=== PATIENT | female | born 1980 | race Two or more races ===

== ENCOUNTER 2016-11-03 17:10 | Inpatient (IN) | payer SELFPAY ==
[~2016-11-03] VITALS: Ht 157.5 cm; Wt 69.4 kg
--- NOTE | 2016-11-03 18:14 | PDOC1 ---
OB - History Hx of Present Care: Good Care Ultrasounds: Normal mid trimester US Obstetrical Complications: None Medical Complications: None Other Concerns: [place] Past Family/Social History * Past Medical, Surgical, Family and Obstetric Histories reviewed from chart. Rubella: Immune RPR/VDRL: Negative GBS Status: Negative HBsAG: Negative OB - Chief Complaint & HPI Date of Admission: Date of Admission: Nov 03, 2016 at 17:10 Chief Complaint/History : 7 Para: 6 EGA: 39 Reason for admission: active labor Admission Nurse Assessment Rev: Yes Problems: OB - Admission Exam Physical Exam HEENT: Normal Heart: Regular Rate Lungs: Clear Abdomen: Gravid, Non tender, Soft Extremities: Edema Reflexes: Normal Cervical Dilatation: 5cm Effacement: 100% Station: -2 Membranes: Intact Heart Rate: Normal Accelerations: Accelerations Present Decelerations: No decelerations Contractions on Admission: 6-10 Minutes Apart Intensity: Mild Text A: 38 wks IUP Grand Multip H/o rapid labor P: Admit for labor management. HARESH SWARTZ Jr, MD Nov 03, 2016 18:14
[2016-11-03] MEDS ORDERED: LIDOCAINE 1% PF 30 ML VIAL. INJ PRN (18:15)
[2016-11-03] MEDS ORDERED: FENTANYL PF 100 MCG/2 ML VIAL. IV PRN (18:15)
[2016-11-03] MEDS ORDERED: OXYTOCIN 30 UNIT/500 ML PREMIX 500 ML IV PRN (18:15)
[2016-11-03] MEDS ORDERED: IBUPROFEN 600 MG TABLET. PO PRN (18:15)
[2016-11-03] MEDS: IV RINGERS,LACTATED 1000ML 1,000 ML IV SCH ×2 (18:39→23:49)
[2016-11-03 19:14] LABS: HEMATOCRIT 32.7 % (36.0-47.0); HEMOGLOBIN 10.4 g/dL (12.0-15.5); RED BLOOD COUNT 4.06 x10^6/uL (3.50-5.40); RED CELL DISTRIBUTION WIDTH 28.9 % (11.5-14.5); WHITE BLOOD COUNT 9.4 x10^3/uL (4.0-11.0)
[2016-11-04] MEDS ORDERED: MISOPROSTOL 200 MCG TABLET ONE ×2 (00:24→01:00)
--- NOTE | 2016-11-04 00:46 | PDOC ---
VAGINAL DELIVERY DATE DATE: 11/04/16 TIME: 00:45 : 7 Para: 7 EGA: 38 VAGINAL DELIVERY: VTX VACCUM ASSISTED: No PLACENTA: Spontaneous 8/9 SEX: Female WEIGHT Weight [3525 gm ] Nuchal Cord: No Amniotic Fluid: Clear PAIN: Natural EPISIOTOMY: No EXTENSION: No EBL 300 ml COMPLICATIONS none CONDITION pt. stable Signs of Intrauterine Infectio: None Shoulder Dystocia: No Problems: HARESH SWARTZ Jr, MD Nov 04, 2016 00:46
[2016-11-04] MEDS ORDERED: 0.9 % SODIUM CHLORIDE 10 ML DISP.SYRIN. IV PRN (01:00)
[2016-11-04] MEDS ORDERED: DIPHENHYDRAMINE HCL 25 MG CAPSULE PO PRN (01:00)
[2016-11-04] MEDS ORDERED: MMR per PROTOCOL. MC PRN (01:00)
[2016-11-04] MEDS ORDERED: BENZOCAINE 20% TOPICAL AEROSOL SPRAY 57GM CAN. TP PRN (01:00)
[2016-11-04] MEDS ORDERED: MAGNESIUM HYDROXIDE 2,400 MG/30 ML ORAL.SUSP. PO PRN (01:00)
[2016-11-04] MEDS ORDERED: OXYTOCIN 30 UNIT/500 ML PREMIX 500 ML IV PRN (01:00)
[2016-11-04] MEDS ORDERED: MAG HYDROX/ALUMINUM HYDROX/SMC 30 ML ORAL.SUSP PO PRN (01:00)
[2016-11-04] MEDS ORDERED: PHENYLEPH/MINERAL OIL/PETROLAT RECTAL OINTMENT 28GM TUBE. RC PRN (01:00)
[2016-11-04] MEDS ORDERED: SIMETHICONE 80 MG TAB.CHEW PO PRN (01:00)
[2016-11-04] MEDS ORDERED: ZOLPIDEM 5 MG TABLET. PO PRN (01:00)
[2016-11-04] MEDS ORDERED: HYDROCORTISONE 1% TOPICAL OINTMENT 30GM TUBE. TP PRN (01:00)
[2016-11-04] MEDS ORDERED: ACETAMINOPHEN 325 MG TABLET. PO PRN (01:00)
[2016-11-04 01:17] VITALS: BP 117/68
[2016-11-04] MEDS: IBUPROFEN 800 MG TABLET. PO PRN (01:32)
[2016-11-04 04:23] VITALS: BP 105/59
[2016-11-04 05:59] VITALS: BP 115/78
--- NOTE | 2016-11-04 07:46 | DISCH ---
DISCHARGE INSTRUCTIONS Condition on Discharge Condition on Discharge: Stable Activity After Discharge Activity Instructions for Disc: Activity as tolerated Lifting Instructions after Dis: No heavy lifting Driving Instructions after Dis: Do not drive today Diet after Discharge Diet after Discharge: Regular Contacting the [facility] after DC Call your doctor for: Concerns you may have Follow-Up Follow up with: Shady in 6 weeks. HARESH SWARTZ Jr, MD Nov 04, 2016 07:46
--- NOTE | 2016-11-04 07:46 | PDOC ---
SURGICAL PROGRESS NOTE Subjective Pt. feeling well. Pain controlled. Pt. ambulating, voiding and tolerating regular diet. Vital Signs Vital Signs Date Time Temp Pulse Resp B/P Pulse Ox O2 Delivery O2 Flow Rate FiO2 11/04/16 05:59 97.7 90 115/78 97.7 11/04/16 04:23 18 11/04/16 01:17 Room Air PATIENT HAS A FUNEZ: No General: Alert, Oriented X3, Cooperative HEENT: Atraumatic Lungs: Clear to auscultation Heart: Regular rate Abdomen: Normal bowel sounds, Soft, No tenderness, No masses Extremities: No clubbing Neuro: Normal gait Psych/Mental Status: Mental status NL Labs Laboratory Tests Test 11/03/16 18:57 White Blood Count 9.4x10^3/uL (4.0-11.0) Red Blood Count 4.06x10^6/uL (3.50-5.40) Hemoglobin 10.4g/dL (12.0-15.5) Hematocrit 32.7% (36.0-47.0) Mean Corpuscular Volume 81fL (79-100) Mean Corpuscular Hemoglobin 26pg (25-35) Mean Corpuscular Hemoglobin Concent 32g/dL (31-37) Red Cell Distribution Width 28.9% (11.5-14.5) Platelet Count 198x10^3/uL (140-400) Laboratory Tests Test 11/03/16 18:57 White Blood Count 9.4x10^3/uL (4.0-11.0) Red Blood Count 4.06x10^6/uL (3.50-5.40) Hemoglobin 10.4g/dL (12.0-15.5) Hematocrit 32.7% (36.0-47.0) Mean Corpuscular Volume 81fL (79-100) Mean Corpuscular Hemoglobin 26pg (25-35) Mean Corpuscular Hemoglobin Concent 32g/dL (31-37) Red Cell Distribution Width 28.9% (11.5-14.5) Platelet Count 198x10^3/uL (140-400) Assessment/Plan A: POD#1 s/p LPSC BSO P: D/c home. Problems: HARESH SWARTZ Jr, MD Nov 04, 2016 07:46
[2016-11-04] MEDS ORDERED: LORA-434 PO (07:48)
[2016-11-04] MEDS ORDERED: OXYC-244 PO (07:48)
[2016-11-04] MEDS ORDERED: IBUP-1060 PO (07:48)
[2016-11-04] MEDS: OXYCODONE/APAP 5/325 TABLET. PO PRN ×2 (08:20→22:45)
[2016-11-04] MEDS: DOCUSATE SODIUM 100 MG CAPSULE PO PRN (08:20)
[2016-11-04] MEDS: IV RINGERS,LACTATED 1000ML 1,000 ML IV SCH ×2 (10:04→18:04)
[2016-11-04 11:24] VITALS: BP 110/70
[2016-11-04 18:24] VITALS: BP 117/80
[2016-11-05 04:52] VITALS: BP 110/74
[2016-11-05 04:58] LABS: BASO # 0.1 x10^3/uL (0.0-0.2); BASO % 1 % (0-3); EOS % 8 % (0-3); HEMOGLOBIN 10.3 g/dL (12.0-15.5); LYMPH # 3.6 x10^3/uL (1.0-4.8); LYMPH % 39 % (24-48); MEAN CORPUSCULAR HEMOGLOBIN 26 pg (25-35); MEAN CORPUSCULAR HGB CONC 31 g/dL (31-37); MEAN CORPUSCULAR VOLUME 82 fL (79-100); MONO % 6 % (0-9); NEUT % 46 % (31-73); PLATELET COUNT 209 x10^3/uL (140-400); RED BLOOD COUNT 4.03 x10^6/uL (3.50-5.40); RED CELL DISTRIBUTION WIDTH 29.9 % (11.5-14.5); WHITE BLOOD COUNT 9.3 x10^3/uL (4.0-11.0)
[2016-11-05 06:31] LABS: ANISOCYTOSIS MOD; PLT ESTIMATE ADEQUATE (ADEQUATE)
[2016-11-05] MEDS ORDERED: FERROUS SULFATE 325 MG TABLET PO SCH (08:00)
--- NOTE | 2016-11-05 11:15 | PDOC ---
OB Progress Note Date of Service 11/05/16 Time of Evaluation 1115 Notes Pt. feeling well. Pain controlled. Lochia minimal. Breast feeding without difficulty. Lab Laboratory Tests Test 11/03/16 18:57 11/05/16 03:50 White Blood Count 9.4x10^3/uL (4.0-11.0) 9.3x10^3/uL (4.0-11.0) Red Blood Count 4.06x10^6/uL (3.50-5.40) 4.03x10^6/uL (3.50-5.40) Hemoglobin 10.4g/dL (12.0-15.5) 10.3g/dL (12.0-15.5) Hematocrit 32.7% (36.0-47.0) 33.0% (36.0-47.0) Mean Corpuscular Volume 81fL (79-100) 82fL (79-100) Mean Corpuscular Hemoglobin 26pg (25-35) 26pg (25-35) Mean Corpuscular Hemoglobin Concent 32g/dL (31-37) 31g/dL (31-37) Red Cell Distribution Width 28.9% (11.5-14.5) 29.9% (11.5-14.5) Platelet Count 198x10^3/uL (140-400) 209x10^3/uL (140-400) RPR Titer Additional Testing Non reactive (Non Reactive) Neutrophils (%) (Auto) 46% (31-73) Lymphocytes (%) (Auto) 39% (24-48) Monocytes (%) (Auto) 6% (0-9) Eosinophils (%) (Auto) 8% (0-3) Basophils (%) (Auto) 1% (0-3) Neutrophils # (Auto) 4.3x10^3uL (1.8-7.7) Lymphocytes # (Auto) 3.6x10^3/uL (1.0-4.8) Monocytes # (Auto) 0.5x10^3/uL (0.0-1.1) Eosinophils # (Auto) 0.8x10^3/uL (0.0-0.7) Basophils # (Auto) 0.1x10^3/uL (0.0-0.2) Platelet Estimate Adequate (ADEQUATE) Anisocytosis Mod Laboratory Tests Test 11/05/16 03:50 White Blood Count 9.3x10^3/uL (4.0-11.0) Red Blood Count 4.03x10^6/uL (3.50-5.40) Hemoglobin 10.3g/dL (12.0-15.5) Hematocrit 33.0% (36.0-47.0) Mean Corpuscular Volume 82fL (79-100) Mean Corpuscular Hemoglobin 26pg (25-35) Mean Corpuscular Hemoglobin Concent 31g/dL (31-37) Red Cell Distribution Width 29.9% (11.5-14.5) Platelet Count 209x10^3/uL (140-400) Neutrophils (%) (Auto) 46% (31-73) Lymphocytes (%) (Auto) 39% (24-48) Monocytes (%) (Auto) 6% (0-9) Eosinophils (%) (Auto) 8% (0-3) Basophils (%) (Auto) 1% (0-3) Neutrophils # (Auto) 4.3x10^3uL (1.8-7.7) Lymphocytes # (Auto) 3.6x10^3/uL (1.0-4.8) Monocytes # (Auto) 0.5x10^3/uL (0.0-1.1) Eosinophils # (Auto) 0.8x10^3/uL (0.0-0.7) Basophils # (Auto) 0.1x10^3/uL (0.0-0.2) Platelet Estimate Adequate (ADEQUATE) Anisocytosis Mod Medications Current Medications Lactated Ringer's (Iv Lactated Ringers) 1,000 ml @ 125 mls/hr Q8H IV Last administered on 11/03/16 23:49; Start 11/03/16 at 18:04; Stop 11/04/16 at 20:09 ; Status DC Fentanyl Citrate (Fentanyl 2ml Vial) 100 mcg PRN Q1HR PRN IV Severe pain Last administered on 11/04/16 00:07; Start 11/03/16 at 18:15 Lidocaine HCl 30 ml 30 ml 1X PRN PRN INJ SEE COMMENTS; Start 11/03/16 at 18:15 ; Stop 11/05/16 at 18:14 Oxytocin/Sodium Chloride (Oxytocin Premix Infusion) 500 ml @ 0 mls/hr CONT PRN PRN IV Post delivery bleeding Last administered on 11/03/16 23:49; Start at 18:15 Ibuprofen (Motrin) 600 mg PRN Q6HRS PRN PO PAIN; Start 11/03/16 at 18:15 Misoprostol (Cytotec 200mcg Tab) 200 mcg STK-MED ONCE .ROUTE ; Start 11/04/16 at 00:24; Stop 11/04/16 at 00:25; Status DC Sodium Chloride 10 ml 10 ml QSHIFT PRN IV AFTER MEDS AND BLOOD DRAWS; Start at 01:00 Oxytocin/Sodium Chloride (Oxytocin Premix Infusion) 500 ml @ 62.5 mls/hr CONT PRN IV SEE I/O RECORD; Start 11/04/16 at 01:00; Stop 11/04/16 at 08:59; Status DC Acetaminophen (Tylenol) 650 mg PRN Q6HRS PRN PO MILD PAIN / TEMP; Start at 01:00 Ibuprofen (Motrin) 800 mg PRN Q8HRS PRN PO INFLAMMATION/PAIN PREVENTION Last administered on 11/04/16 01:32; Start 11/04/16 at 01:00 Docusate Sodium (Colace) 100 mg PRN BID PRN PO CONSTIPATION Last administered on 11/04/16 08:20; Start 11/04/16 at 01:00 Magnesium Hydroxide (Milk Of Magnesia) 2,400 mg PRN DAILY PRN PO CONSTIPATION; Start 11/04/16 at 01:00 Al Hydrox/Mg Hydrox/Simethicone (Mylanta Plus Xs) 30 ml PRN Q4HRS PRN PO HEARTBURN / GAS; Start 11/04/16 at 01:00 Simethicone (Gas-X) 80 mg PRN AFTMEALHC PRN PO GAS / BLOATING; Start 11/04/16 at 01:00 Diphenhydramine HCl (Benadryl) 25 mg PRN Q6HRS PRN PO ITCHING; Start 11/04/16 at 01:00 Benzocaine (Americaine) 1 spray PRN QID PRN TP TOPICAL PAIN; Start 11/04/16 at 01:00 Phenyleph/Shark Oil/Min Oil/Petrol (Preparation H) 1 jonnie PRN QID PRN RC RECTAL PAIN; Start 11/04/16 at 01:00 Hydrocortisone (Cortaid) 1 jonnie PRN QID PRN TP PERINEAL PAIN; Start 11/04/16 at 01:00 Ferrous Sulfate (Feosol) 325 mg BIDWMEALS PO ; Start 11/05/16 at 08:00 Zolpidem Tartrate (Ambien) 5 mg PRN QHS PRN PO INSOMNIA, MAY REPEAT X1; Start 11/04/16 at 01:00 Info (Do NOT chart on this placeholder) 1 ea 1X PRN PRN MC SEE COMMENTS; Start 11/04/16 at 01:00 Info (Do NOT chart on this placeholder) 1 ea 1X PRN PRN MC SEE COMMENTS; Start 11/04/16 at 01:00 Oxycodone/ Acetaminophen (Percocet 5/325) 2 tab PRN Q4HRS PRN PO MODERATE PAIN , SEVERE PAIN Last administered on 11/04/16t 22:45; Start 11/04/16 at 01:00 Misoprostol (Cytotec 200mcg Tab) 800 mcg STK-MED ONCE .ROUTE ; Start 11/04/16 at 01:00; Stop 11/04/16 at 08:18; Status DC Active Scripts Active Ibuprofen 800 Mg Tablet 800 Mg PO PRN Q6HRS PRN Exam Abd: soft, non tender, fundus firm Assessment A: PPD#1 s/p Plan of Care: Continue current Tx, Mgmt HARESH SWARTZ Jr, MD Nov 05, 2016 11:15
[2016-11-05] MEDS: IBUPROFEN 800 MG TABLET. PO PRN (16:11)
[2016-11-05] MEDS: DOCUSATE SODIUM 100 MG CAPSULE PO PRN (16:11)
[2016-11-05 21:42] VITALS: BP 114/78
[2016-11-06] MEDS: IBUPROFEN 800 MG TABLET. PO PRN (03:02)
[2016-11-06 06:15] VITALS: BP 102/65
[2016-11-06] MEDS: DOCUSATE SODIUM 100 MG CAPSULE PO PRN (09:18)
[2016-11-06] MEDS: OXYCODONE/APAP 5/325 TABLET. PO PRN (09:22)
[2016-11-06 14:05] VITALS: BP 104/70
--- NOTE | 2016-11-06 15:08 | PDOC ---
OB Progress Note Date of Service 11/06/16 Time of Evaluation 1505 Notes Pt. feeling well. No complaints. Lab Laboratory Tests Test 11/05/16 03:50 White Blood Count 9.3x10^3/uL (4.0-11.0) Red Blood Count 4.03x10^6/uL (3.50-5.40) Hemoglobin 10.3g/dL (12.0-15.5) Hematocrit 33.0% (36.0-47.0) Mean Corpuscular Volume 82fL (79-100) Mean Corpuscular Hemoglobin 26pg (25-35) Mean Corpuscular Hemoglobin Concent 31g/dL (31-37) Red Cell Distribution Width 29.9% (11.5-14.5) Platelet Count 209x10^3/uL (140-400) Neutrophils (%) (Auto) 46% (31-73) Lymphocytes (%) (Auto) 39% (24-48) Monocytes (%) (Auto) 6% (0-9) Eosinophils (%) (Auto) 8% (0-3) Basophils (%) (Auto) 1% (0-3) Neutrophils # (Auto) 4.3x10^3uL (1.8-7.7) Lymphocytes # (Auto) 3.6x10^3/uL (1.0-4.8) Monocytes # (Auto) 0.5x10^3/uL (0.0-1.1) Eosinophils # (Auto) 0.8x10^3/uL (0.0-0.7) Basophils # (Auto) 0.1x10^3/uL (0.0-0.2) Platelet Estimate Adequate (ADEQUATE) Anisocytosis Mod Medications Current Medications Lactated Ringer's (Iv Lactated Ringers) 1,000 ml @ 125 mls/hr Q8H IV Last administered on 11/03/16 23:49; Start 11/03/16 at 18:04; Stop 11/04/16 at 20:09 ; Status DC Fentanyl Citrate (Fentanyl 2ml Vial) 100 mcg PRN Q1HR PRN IV Severe pain Last administered on 11/04/16 00:07; Start 11/03/16 at 18:15 Lidocaine HCl 30 ml 30 ml 1X PRN PRN INJ SEE COMMENTS; Start 11/03/16 at 18:15 ; Stop 11/05/16 at 18:14; Status DC Oxytocin/Sodium Chloride (Oxytocin Premix Infusion) 500 ml @ 0 mls/hr CONT PRN PRN IV Post delivery bleeding Last administered on 11/03/16 23:49; Start at 18:15 Ibuprofen (Motrin) 600 mg PRN Q6HRS PRN PO PAIN; Start 11/03/16 at 18:15 Misoprostol (Cytotec 200mcg Tab) 200 mcg STK-MED ONCE .ROUTE ; Start 11/04/16 at 00:24; Stop 11/04/16 at 00:25; Status DC Sodium Chloride 10 ml 10 ml QSHIFT PRN IV AFTER MEDS AND BLOOD DRAWS; Start at 01:00 Oxytocin/Sodium Chloride (Oxytocin Premix Infusion) 500 ml @ 62.5 mls/hr CONT PRN IV SEE I/O RECORD; Start 11/04/16 at 01:00; Stop 11/04/16 at 08:59; Status DC Acetaminophen (Tylenol) 650 mg PRN Q6HRS PRN PO MILD PAIN / TEMP; Start at 01:00 Ibuprofen (Motrin) 800 mg PRN Q8HRS PRN PO INFLAMMATION/PAIN PREVENTION Last administered on 11/06/16 03:02; Start 11/04/16 at 01:00 Docusate Sodium (Colace) 100 mg PRN BID PRN PO CONSTIPATION Last administered on 11/06/16 09:18; Start 11/04/16 at 01:00 Magnesium Hydroxide (Milk Of Magnesia) 2,400 mg PRN DAILY PRN PO CONSTIPATION; Start 11/04/16 at 01:00 Al Hydrox/Mg Hydrox/Simethicone (Mylanta Plus Xs) 30 ml PRN Q4HRS PRN PO HEARTBURN / GAS; Start 11/04/16 at 01:00 Simethicone (Gas-X) 80 mg PRN AFTMEALHC PRN PO GAS / BLOATING; Start 11/04/16 at 01:00 Diphenhydramine HCl (Benadryl) 25 mg PRN Q6HRS PRN PO ITCHING; Start 11/04/16 at 01:00 Benzocaine (Americaine) 1 spray PRN QID PRN TP TOPICAL PAIN; Start 11/04/16 at 01:00 Phenyleph/Shark Oil/Min Oil/Petrol (Preparation H) 1 jonnie PRN QID PRN RC RECTAL PAIN; Start 11/04/16 at 01:00 Hydrocortisone (Cortaid) 1 jonnie PRN QID PRN TP PERINEAL PAIN; Start 11/04/16 at 01:00 Ferrous Sulfate (Feosol) 325 mg BIDWMEALS PO ; Start 11/05/16 at 08:00 Zolpidem Tartrate (Ambien) 5 mg PRN QHS PRN PO INSOMNIA, MAY REPEAT X1; Start 11/04/16 at 01:00 Info (Do NOT chart on this placeholder) 1 ea 1X PRN PRN MC SEE COMMENTS; Start 11/04/16 at 01:00 Info (Do NOT chart on this placeholder) 1 ea 1X PRN PRN MC SEE COMMENTS; Start 11/04/16 at 01:00 Oxycodone/ Acetaminophen (Percocet 5/325) 2 tab PRN Q4HRS PRN PO MODERATE PAIN , SEVERE PAIN Last administered on 11/06/16t 09:22; Start 11/04/16 at 01:00 Misoprostol (Cytotec 200mcg Tab) 800 mcg STK-MED ONCE .ROUTE ; Start 11/04/16 at 01:00; Stop 11/04/16 at 08:18; Status DC Active Scripts Active Ibuprofen 800 Mg Tablet 800 Mg PO PRN Q6HRS PRN Exam Abd: soft, non tender, fundus firm Assessment PPD#2 s/p Plan of Care: See new orders (D/c home.) HARESH SWARTZ Jr, MD Nov 06, 2016 15:08
== END 2016-11-06 16:22 | disposition home or self-care (01) | DRG 775 ==
LOC: 3 SO LND 17:10 → OBSVTOIN 17:10 → 3 NORTH 11-04 03:55
PROVIDERS: ADMIT Obstetrics & Gynecology; ATTEND Obstetrics & Gynecology
PROC: 10E0XZZ Delivery of Products of Conception, External Approach (ICD-10-PCS; principal; 2016-11-04)
DX: O75.89 Other specified complications of labor and delivery (principal); O09.43 Supervision of pregnancy with grand multiparity, third trimester; O09.523 Supervision of elderly multigravida, third trimester; Z3A.38 38 weeks gestation of pregnancy; Z37.0 Single live birth
CPT/HCPCS: 36415; 85007; 85027; 86593; 86850; 86900; 86901; G0378; J2590; J3010; J7120

== ENCOUNTER 2018-06-25 11:56 | Emergency (ER) | payer SELFPAY ==
[~2018-06-25] VITALS: Ht 160 cm; Wt 61.2 kg
[~2018-06-25 11:56] MED LIST: IBUP-1060 PO; LORA-434 PO; OXYC-327 PO
[2018-06-25 12:25] VITALS: BP 113/56
[2018-06-25 13:12] LABS: BILIRUBIN,URINE NEGATIVE (NEG); CLARITY,URINE CLEAR; COLOR,URINE YELLOW; NITRITE,URINE NEGATIVE (NEG); PH,URINE 6.5; PROTEIN,URINE NEGATIVE (NEG-TRACE); UROBILINOGEN,URINE 0.2 mg/dL (0.2 mg/dL)
[2018-06-25 13:28] LABS: BACTERIA,URINE MANY /HPF (0-FEW); RBC,URINE 20-40 /HPF (0-2); WBC,URINE TNTC /HPF (0-4)
[2018-06-25] MEDS ORDERED: SULF1TAB24 PO (13:40)
--- NOTE | 2018-06-25 13:41 | PHYS DOC ---
Past Medical History Past Medical History: No Pertinent History Past Surgical History: No Surgical History Alcohol Use: None Drug Use: None Adult General Chief Complaint Chief Complaint: PAIN ON URINATION [facility] Patient is a 38 year old female who presents with pain with urination since . Patient states that it alves when she urinates and when she wiped there was blood on the told paper. She rates the pain is 7 and 8 and states that the pain is only there when she urinates. Patient has no lower abdominal tenderness. Abdomen is soft. Chin denies any nausea, vomiting, diarrhea or fever. Patient states her last period was June 02. Patient denies any back pain. Patient states she takes no medications daily and has no medical history or surgeries. Patient's known drug allergies. Review of Systems Review of Systems Constitutional: Denies fever or chills [] Eyes: Denies change in visual acuity, redness, or eye pain [] HENT: Denies nasal congestion or sore throat [] Respiratory: Denies cough or shortness of breath [] Cardiovascular: No additional information not addressed in HPI [] GI: Denies abdominal pain, nausea, vomiting, bloody stools or diarrhea [] : Dysuria or hematuria [] Musculoskeletal: Denies back pain or joint pain [] Integument: Denies rash or skin lesions [] Neurologic: Denies headache, focal weakness or sensory changes [] All other systems were reviewed and found to be within normal limits, except as documented in this note. Allergies Allergies Allergies Coded Allergies Type Severity Reaction Last Updated Verified No Known Drug Allergies 11/03/16 No Physical Exam Physical Exam Constitutional: Well developed, well nourished, no acute distress, non-toxic appearance. [] HENT: Normocephalic, atraumatic, bilateral external ears normal, oropharynx moist, no oral exudates, nose normal. [] Eyes: PERRLA, EOMI, conjunctiva normal, no discharge. [] Neck: Normal range of motion, no tenderness, supple, no stridor. [] Cardiovascular:Heart rate regular rhythm, no murmur [] Lungs & Thorax: Bilateral breath sounds clear to auscultation [] Abdomen: Bowel sounds normal, soft, no tenderness, no masses, no pulsatile masses. [] Skin: Warm, dry, no erythema, no rash. [] Back: No tenderness, no CVA tenderness. [] Extremities: No tenderness, no cyanosis, no clubbing, ROM intact, no edema. [] Neurologic: Alert and oriented X 3, normal motor function, normal sensory function, no focal deficits noted. [] Psychologic: Affect normal, judgement normal, mood normal. [] Current Patient Data Vital Signs Vital Signs Date Time Temp Pulse Resp B/P (MAP) Pulse Ox O2 Delivery O2 Flow Rate FiO2 06/25/18 12:25 98.1 72 16 113/56 (75) 97 Room Air 98.1 Lab Values Laboratory Tests Test 06/25/18 12:40 06/25/18 13:00 Urine Collection Type Unknown Urine Color Yellow Urine Clarity Clear Urine pH 6.5 Urine Specific [place] 1.010 Urine Protein Negative mg/dL (NEG-TRACE) Urine Glucose (UA) Negative mg/dL (NEG) Urine Ketones (Stick) Negative mg/dL (NEG) Urine Blood Moderate (NEG) Urine Nitrite Negative (NEG) Urine Bilirubin Negative (NEG) Urine Urobilinogen Dipstick 0.2 mg/dL (0.2 mg/dL) Urine Leukocyte Esterase Large (NEG) Urine RBC 20-40 /HPF (0-2) Urine WBC Tntc /HPF (0-4) Urine Bacteria Many /HPF (0-FEW) POC Urine HCG, Qualitative Hcg negative (Negative) EKG EKG [] Radiology/Procedures Radiology/Procedures [] Course & Med Decision Making Course & Med Decision Making Patient is a 38 year old female who presents with pain with urination since . Patient states that it alves when she urinates and when she wiped there was blood on the told paper. She rates the pain is 7 and 8 and states that the pain is only there when she urinates. Patient has no lower abdominal tenderness. Abdomen is soft. Chin denies any nausea, vomiting, diarrhea or fever. Patient states her last period was June 02. Patient denies any back pain. Patient states she takes no medications daily and has no medical history or surgeries. Patient's known drug allergies. Patient has no CVA tenderness. Patient skin is pink warm and dry. Patient states that she has no vaginal discharge at this time. Patient is given a prescription for Bactrim and treated for UTI. Patients Urinalysis came back with bacteria in her urine. Patient to return to the ED if starts running fever or not getting better. [] Staff Physician Addendum: I was working in the ER during the course of this patient's visit. I was available for consultation as needed, but I was not directly involved in the care of this patient. Dana Disclaimer Dragon Disclaimer This electronic medical record was generated, in whole or in part, using a voice recognition dictation system. Departure Departure Impression: Primary Impression: UTI (urinary tract infection) Disposition: HOME, SELF-CARE Condition: STABLE Referrals: NO PCP (PCP) Patient Instructions: Urinary Tract Infection Additional Instructions: Follow up with primary care doctor. Take medications as prescribed. Scripts Sulfamethoxazole/Trimethoprim (BACTRIM DS TABLET) 1 Each Tablet 1 TAB PO BID for 7 Days, #14 TAB Prov: PEYTON UNDERWOOD APRN 06/25/18 Problem Qualifiers Primary Impression: UTI (urinary tract infection) Urinary tract infection type: site unspecified Hematuria presence: with hematuria Qualified Codes: N39.0 - Urinary tract infection, site not specified ; R31.9 - Hematuria, unspecified PEYTON UNDERWOOD APRN Jun 25, 2018 13:41 ALL VENTURA MD Jun 25, 2018 15:07
== END 2018-06-25 13:48 | disposition home or self-care (01) ==
LOC: ER 11:56
DX: N39.0 Urinary tract infection, site not specified (principal)
CPT/HCPCS: 81001; 81025; 87086; 99284

== ENCOUNTER 2019-04-27 08:39 | Emergency (ER) | payer SELFPAY ==
[~2019-04-27] VITALS: Ht 167.6 cm; Wt 65.8 kg
[~2019-04-27 08:39] MED LIST changes: +HYDR-3164 PO; +NAPR-514 PO; -OXYC-327 PO; +OXYC1TAB19 PO; +SULF1TAB24 PO
[2019-04-27 08:57] LABS: BILIRUBIN,URINE NEGATIVE (NEG); CLARITY,URINE CLEAR; COLOR,URINE YELLOW; NITRITE,URINE NEGATIVE (NEG); PH,URINE 5.5; PROTEIN,URINE NEGATIVE (NEG-TRACE); UROBILINOGEN,URINE 0.2 mg/dL (0.2 mg/dL)
[2019-04-27] MEDS ORDERED: MORPHINE SULFATE 10 MG/ML VIAL. IV ONE (09:15)
[2019-04-27] MEDS ORDERED: ONDANSETRON PF 4 MG/2 ML VIAL. IV ONE (09:15)
--- NOTE | 2019-04-27 09:28 | PHYS DOC ---
Past Medical History Past Medical History: No Pertinent History Past Surgical History: No Surgical History Alcohol Use: None Drug Use: None Adult General Chief Complaint Chief Complaint: VAGINAL BLEEDING [facility] HPI Patient is a 39 year old female 8 para 8 who had a recent vaginal delivery 9 days ago presenting to the ED today complaining of mild to moderate lower abdominal cramping like pain and increased vaginal bleeding since last night. Patient has used 2 feminine pads last night and took this morning. She states this morning she noted a blood clot when she went to use the bathroom and was concerned. Patient denies anything specifically exacerbating or relieving her pain. Patient is primarily Palestinian-speaking and interpretation is provided by Review of Systems Review of Systems Constitutional: Denies fever or chills [] Eyes: Denies change in visual acuity, redness, or eye pain [] HENT: Denies nasal congestion or sore throat [] Respiratory: Denies cough or shortness of breath [] Cardiovascular: No additional information not addressed in HPI [] GI: Reports vaginal bleeding and abdominal pain, Denies nausea, vomiting, bloody stools or diarrhea [] : Denies dysuria or hematuria [] Musculoskeletal: Denies back pain or joint pain [] Integument: Denies rash or skin lesions [] Neurologic: Denies headache, focal weakness or sensory changes [] All other systems were reviewed and found to be within normal limits, except as documented in this note. Current Medications Current Medications Current Medications Medications (Trade) Dose Ordered Sig/Vinod Start Time Stop Time Status Last Admin Dose Admin Ceftriaxone Sodium (Rocephin) 1 gm 1X ONCE 04/27/19 09:45 04/27/19 09:46 DC 04/27/19 10:02 1 GM Morphine Sulfate (Morphine Sulfate) 5 mg 1X ONCE 04/27/19 09:15 04/27/19 09:16 DC 04/27/19 09:19 5 MG Ondansetron HCl (Zofran) 4 mg 1X ONCE 04/27/19 09:15 04/27/19 09:16 DC 04/27/19 09:19 4 MG Allergies Allergies Allergies Coded Allergies Type Severity Reaction Last Updated Verified No Known Drug Allergies 11/03/16 No Physical Exam Physical Exam Constitutional: Well developed, well nourished, no acute distress, non-toxic appearance. [] HENT: Normocephalic, atraumatic, bilateral external ears normal, oropharynx moist, no oral exudates, nose normal. [] Eyes: PERRLA, EOMI, conjunctiva normal, no discharge. [] Neck: Normal range of motion, no tenderness, supple, no stridor. [] Cardiovascular:Heart rate regular rhythm, no murmur [] Lungs & Thorax: Bilateral breath sounds clear to auscultation [] Abdomen: Bowel sounds normal, soft, no tenderness, no masses, no pulsatile masses. [] Pelvic exam Exterior vaginal area with no obvious abnormality cervix not visualized trace amount of brownish blood noted in the vaginal vault, no adnexal tenderness. Skin: Warm, dry, no erythema, no rash. [] Back: No tenderness, no CVA tenderness. [] Extremities: No tenderness, no cyanosis, no clubbing, ROM intact, no edema. [] Neurologic: Alert and oriented X 3, normal motor function, normal sensory function, no focal deficits noted. [] Psychologic: Affect normal, judgement normal, mood normal. [] Current Patient Data Vital Signs Vital Signs Date Time Temp Pulse Resp B/P (MAP) Pulse Ox O2 Delivery O2 Flow Rate FiO2 04/27/19 08:48 97.9 75 18 132/84 (100) 98 Room Air 97.9 Lab Values Laboratory Tests Test 04/27/19 08:50 04/27/19 09:00 Urine Collection Type Unknown Urine Color Yellow Urine Clarity Clear Urine pH 5.5 Urine Specific [place] 1.020 Urine Protein Negative mg/dL (NEG-TRACE) Urine Glucose (UA) Negative mg/dL (NEG) Urine Ketones (Stick) Negative mg/dL (NEG) Urine Blood Large (NEG) Urine Nitrite Negative (NEG) Urine Bilirubin Negative (NEG) Urine Urobilinogen Dipstick 0.2 mg/dL (0.2 mg/dL) Urine Leukocyte Esterase Moderate (NEG) Urine RBC 11-20 /HPF (0-2) Urine WBC 11-20 /HPF (0-4) Urine Squamous Epithelial Cells Few /LPF Urine Bacteria Few /HPF (0-FEW) Urine Mucus Mod /LPF White Blood Count 8.2 x10^3/uL (4.0-11.0) Red Blood Count 4.49 x10^6/uL (3.50-5.40) Hemoglobin 13.8 g/dL (12.0-15.5) Hematocrit 40.6 % (36.0-47.0) Mean Corpuscular Volume 90 fL (79-100) Mean Corpuscular Hemoglobin 31 pg (25-35) Mean Corpuscular Hemoglobin Concent 34 g/dL (31-37) Red Cell Distribution Width 15.1 % (11.5-14.5) H Platelet Count 253 x10^3/uL (140-400) Neutrophils (%) (Auto) 53 % (31-73) Lymphocytes (%) (Auto) 33 % (24-48) Monocytes (%) (Auto) 6 % (0-9) Eosinophils (%) (Auto) 7 % (0-3) H Basophils (%) (Auto) 0 % (0-3) Neutrophils # (Auto) 4.4 x10^3/uL (1.8-7.7) Lymphocytes # (Auto) 2.7 x10^3/uL (1.0-4.8) Monocytes # (Auto) 0.5 x10^3/uL (0.0-1.1) Eosinophils # (Auto) 0.6 x10^3/uL (0.0-0.7) Basophils # (Auto) 0.0 x10^3/uL (0.0-0.2) Sodium Level 140 mmol/L (136-145) Potassium Level 4.0 mmol/L (3.5-5.1) Chloride Level 104 mmol/L (98-107) Carbon Dioxide Level 25 mmol/L (21-32) Anion Gap 11 (6-14) Blood Urea Nitrogen 20 mg/dL (7-20) Creatinine 0.7 mg/dL (0.6-1.0) Estimated GFR (Cockcroft-Gault) 93.6 BUN/Creatinine Ratio 29 (6-20) H Glucose Level 92 mg/dL (70-99) Calcium Level 8.7 mg/dL (8.5-10.1) Total Bilirubin 0.4 mg/dL (0.2-1.0) Aspartate Amino Transferase (AST) 25 U/L (15-37) Alanine Aminotransferase (ALT) 28 U/L (14-59) Alkaline Phosphatase 167 U/L (46-116) H Total Protein 7.3 g/dL (6.4-8.2) Albumin 2.9 g/dL (3.4-5.0) L Albumin/Globulin Ratio 0.7 (1.0-1.7) L Laboratory Tests 04/27/19 09:00 Laboratory Tests 04/27/19 09:00 EKG EKG [] Radiology/Procedures Radiology/Procedures [] Course & Med Decision Making Course & Med Decision Making Pertinent Labs and Imaging studies reviewed. (See chart for details) This is a 39-year-old female patient presenting to the ED today with vaginal bleeding and lower abdominal pain, symptoms began last night, patient had a vaginal delivery 9 days ago. She is a 8 para 8. CBC with a normal hemoglobin and hematocrit, normal WBC. CMP with ALK of 169, normal AST and ALT. UA+ for UTI-given Rocephin in the Ed and D/C on Cephalexin Extremities the pelvic ultrasound no evidence of products of conception, no free fluid identified in the uterus Patient was discharged to home, follow up with OB in the course of next week. Provided instructions to return to the ED at any point symptoms worsen especially if she starts soaking 1 feminine pad an hour. Dragon Disclaimer Dragon Disclaimer This electronic medical record was generated, in whole or in part, using a voice recognition dictation system. Departure Departure Impression: Primary Impression: UTI (urinary tract infection) Additional Impression: hemorrhage of vagina Disposition: 01 HOME, SELF-CARE Condition: STABLE Referrals: NO PCP (PCP) VIVIAN BUSTOS MD Follow-up in one week Patient Instructions: Hemorrhage, Heavy Bleeding Following Delivery, Urinary Tract Infection Additional Instructions: You were evaluated in the emergency room for vaginal bleeding after vaginal delivery. This is not unusual. You also have urinary tract infection. Take the prescribed antibiotics until completed. Please follow-up with your [facility] next week, come back to the ED at any point you start soaking more than 1 feminine pad an hour. Scripts Cephalexin (CEPHALEXIN) 500 Mg Capsule 1 CAP PO BID, #14 CAP Prov: KACY ALAS APRN 04/27/19 Problem Qualifiers Primary Impression: UTI (urinary tract infection) Urinary tract infection type: site unspecified Hematuria presence: without hematuria Qualified Codes: N39.0 - Urinary tract infection, site not specified KACY ALAS APRN Apr 27, 2019 09:28
[2019-04-27 09:31] LABS: SQUAMOUS EPITHELIAL CELL,UR FEW /LPF
[2019-04-27 09:32] LABS: BACTERIA,URINE FEW /HPF (0-FEW)
[2019-04-27 09:32] LABS: CALCIUM 8.7 mg/dL (8.5-10.1); CREATININE 0.7 mg/dL (0.6-1.0); GFR 93.6
[2019-04-27 09:38] LABS: ALBUMIN 2.9 g/dL (3.4-5.0); ALBUMIN/GLOBULIN RATIO 0.7 (1.0-1.7); TOTAL BILIRUBIN 0.4 mg/dL (0.2-1.0); TOTAL PROTEIN 7.3 g/dL (6.4-8.2)
[2019-04-27 09:42] LABS: BASO % 0 % (0-3); EOS # 0.6 x10^3/uL (0.0-0.7); EOS % 7 % (0-3); HEMATOCRIT 40.6 % (36.0-47.0); HEMOGLOBIN 13.8 g/dL (12.0-15.5); LYMPH # 2.7 x10^3/uL (1.0-4.8); LYMPH % 33 % (24-48); MEAN CORPUSCULAR HEMOGLOBIN 31 pg (25-35); MEAN CORPUSCULAR HGB CONC 34 g/dL (31-37); MEAN CORPUSCULAR VOLUME 90 fL (79-100); MONO # 0.5 x10^3/uL (0.0-1.1); MONO % 6 % (0-9); NEUT # 4.4 x10^3/uL (1.8-7.7); NEUT % 53 % (31-73); PLATELET COUNT 253 x10^3/uL (140-400); RED BLOOD COUNT 4.49 x10^6/uL (3.50-5.40); RED CELL DISTRIBUTION WIDTH 15.1 % (11.5-14.5); WHITE BLOOD COUNT 8.2 x10^3/uL (4.0-11.0)
[2019-04-27] MEDS ORDERED: cefTRIAXone IV Push 1 GM VIAL. IVP ONE (09:45)
[2019-04-27 10:10] VITALS: BP 128/88
[2019-04-27] MEDS ORDERED: CEPH500C PO (10:43)
--- NOTE | 2019-04-27 11:08 | RAD ---
PELVIS COMPLETE Clinical Indication: Vaginal bleeding, vaginal 9 days ago. Comparison: None. TECHNIQUE: Real-time ultrasound imaging of the pelvis using transabdominal window is performed. Findings: Uterus measures 12 x 9.7 x 7.7 cm. The endometrial stripe measures 2.1 cm. These findings are compatible with a uterus. Color Doppler interrogation of the endometrium is negative. There is normal blood flow in the ovaries. No pelvic free fluid is seen. IMPRESSION: uterus. No evidence of retained products of conception. Electronically signed by: Ernesto Stark MD (04/27/2019 11:05 AM) [facility]
== END 2019-04-27 10:56 | disposition home or self-care (01) ==
LOC: ER 08:39
DX: O72.1 Other immediate postpartum hemorrhage (principal); O86.20 Urinary tract infection following delivery, unspecified
CPT/HCPCS: 36415; 76856; 80053; 81001; 85025; 87086; 96374; 96375; 99285; J0696; J2270; J2405